=== PATIENT | male | born 1960 | race Caucasian/White ===

== ENCOUNTER 2022-09-04 13:46 | Outpatient (CLI) | payer BC, SELFPAY | END 2022-09-04 13:47 | disposition home or self-care (01) | LOC: KYNREF 13:46 | PROVIDERS: PCP Nurse Practitioner Family; Visit Provider Nurse Practitioner Family | DX: R10.9 Unspecified abdominal pain (principal); Z87.442 Personal history of urinary calculi | CPT/HCPCS: 87086 ==

== ENCOUNTER 2023-10-13 10:45 | Outpatient (CLI) | payer BC, SELFPAY | END 2023-10-13 10:46 | disposition home or self-care (01) | PROVIDERS: PCP Nurse Practitioner Family; Visit Provider Nurse Practitioner Family | DX: E78.5 Hyperlipidemia, unspecified (principal); R07.9 Chest pain, unspecified | CPT/HCPCS: 80053; 80061; 84484; 85025 ==

== ENCOUNTER 2024-01-05 14:13 | Outpatient (CLI) | payer BC, SELFPAY | END 2024-01-05 14:14 | disposition home or self-care (01) | LOC: NFLDREF 01-14 12:28 | PROVIDERS: PCP Nurse Practitioner Family; Referring Provider Nurse Practitioner Family; Visit Provider Nurse Practitioner Family | DX: N52.9 Male erectile dysfunction, unspecified (principal); Z51.81 Encounter for therapeutic drug level monitoring | CPT/HCPCS: 80061; 80076; 84403 ==

== ENCOUNTER 2024-01-14 08:33 | Outpatient (CLI) | payer BC, SELFPAY | END 2024-01-14 08:34 | disposition home or self-care (01) | LOC: NFLDREF 01-15 06:17 | PROVIDERS: PCP Nurse Practitioner Family; Referring Provider Nurse Practitioner Family; Visit Provider Nurse Practitioner Family | DX: E78.5 Hyperlipidemia, unspecified (principal) | CPT/HCPCS: 80061 ==

== ENCOUNTER 2024-07-14 14:01 | Outpatient (CLI) | payer BC, SELFPAY | END 2024-07-14 14:02 | disposition home or self-care (01) | LOC: KYNREF 14:05 | PROVIDERS: PCP Nurse Practitioner Family; Visit Provider Nurse Practitioner Family | DX: N20.0 Calculus of kidney (principal); R31.9 Hematuria, unspecified | CPT/HCPCS: 81001; 87086 ==

== ENCOUNTER 2024-12-20 10:15 | Outpatient (CLI) | payer BC, SELFPAY | END 2024-12-20 10:16 | disposition home or self-care (01) | PROVIDERS: PCP Nurse Practitioner Family; Visit Provider Nurse Practitioner Family | DX: E78.5 Hyperlipidemia, unspecified (principal); I10 Essential (primary) hypertension; Z12.5 Encounter for screening for malignant neoplasm of prostate | CPT/HCPCS: 80053; 80061; 85025; G0103 ==

== ENCOUNTER 2025-02-03 12:30 | Outpatient (CLI) | payer BC, SELFPAY | END 2025-02-03 12:31 | disposition home or self-care (01) | PROVIDERS: PCP Nurse Practitioner Family; Visit Provider Nurse Practitioner Family | DX: N20.0 Calculus of kidney (principal) | CPT/HCPCS: 81001; 82310; 83970; 87086 ==